=== PATIENT | female | born 1950 | race Two or more races ===

== ENCOUNTER 2016-05-24 22:06 | Inpatient (IN) | payer MEDICARE, MEDICAID ==
[~2016-05-24] VITALS: Ht 170.2 cm; Wt 50.8 kg
[2016-05-24] MEDS ORDERED: MAGNESIUM HYDROXIDE 30 ML UDC PO PRN (23:00)
[2016-05-24] MEDS ORDERED: MAG HYDROX/AL HYDROX/SIMETH 30 ML UDC PO PRN (23:00)
[2016-05-25 00:27] VITALS: BP 153/87
[2016-05-25 07:44] LABS: BASOPHILS % (AUTO) 0.3 % (0.0-2.0); DIFF TOTAL % 100 %; EOSINOPHILS # (AUTO) 0.1 /CMM (0.0-0.7); EOSINOPHILS % (AUTO) 0.8 % (0.0-6.0); HEMATOCRIT 38 % (33-45); HEMOGLOBIN 12.8 g/dL (11.5-14.8); LYMPHOCYTES # (AUTO) 2.1 /CMM (0.8-4.8); LYMPHOCYTES % (AUTO) 18.4 % (20.0-44.0); MEAN CORPUSCULAR HEMOGLOBIN 30 PG (26.0-33.0); MEAN CORPUSCULAR HGB CONC 34 g/dl (31.0-36.0); MEAN CORPUSCULAR VOLUME 88 fL (82-100); MONOCYTES % (AUTO) 8.8 % (2.0-12.0); NEUTROPHILS % (AUTO) 71.7 % (43.0-81.0); PLATELET COUNT (AUTO) 292 /CMM (150-450); RED BLOOD CELL COUNT(AUTO) 4.33 MIL/uL (4.0-5.2); WHITE BLOOD COUNT (AUTO) 11.2 K/uL (4.3-11.0)
[2016-05-25 08:00] VITALS: BP 139/96
[2016-05-25 08:01] LABS: BILIRUBIN,TOTAL 0.4 mg/dL (0.2-1.0); CALCIUM, SERUM 9.2 mg/dL (8.5-10.1); CREATININE 0.7 mg/dL (0.6-1.3); POTASSIUM 3.9 mmol/L (3.5-5.1); TOTAL PROTEIN, SERUM 7.6 g/dL (6.4-8.2)
[2016-05-25 16:00] VITALS: BP 126/70
[2016-05-25] MEDS: OLANZAPINE 5 MG/TAB.RAPDIS PO SCH (21:21)
[2016-05-25] MEDS: TEMAZEPAM 7.5 MG CAPSULE PO PRN (21:21)
[2016-05-25 23:50] VITALS: BP 150/91
[2016-05-26 08:57] VITALS: BP 119/76
[2016-05-26] MEDS ORDERED: OLANZAPINE 10 MG VIAL IM STA (11:15)
[2016-05-26 16:02] VITALS: BP 109/65
[2016-05-26 20:00] VITALS: BP 126/65
[2016-05-26] MEDS: OLANZAPINE 5 MG/TAB.RAPDIS PO SCH (21:30)
[2016-05-26] MEDS: TEMAZEPAM 7.5 MG CAPSULE PO PRN (21:31)
[2016-05-27 08:19] VITALS: BP 137/99
[2016-05-27] MEDS: LORAZEPAM 0.5 MG TABLET PO PRN ×2 (09:08→18:56)
[2016-05-27] MEDS: ACETAMINOPHEN 325 MG TABLET PO PRN (09:15)
[2016-05-27 16:00] VITALS: BP 135/85
[2016-05-27] MEDS: TEMAZEPAM 7.5 MG CAPSULE PO PRN (21:18)
[2016-05-27] MEDS: OLANZAPINE 5 MG/TAB.RAPDIS PO SCH (21:20)
[2016-05-28 07:10] LABS: BASOPHILS % (AUTO) 0.3 % (0.0-2.0); DIFF TOTAL % 100 %; EOSINOPHILS # (AUTO) 0.3 /CMM (0.0-0.7); EOSINOPHILS % (AUTO) 4.8 % (0.0-6.0); HEMATOCRIT 33 % (33-45); HEMOGLOBIN 11.3 g/dL (11.5-14.8); LYMPHOCYTES % (AUTO) 18.6 % (20.0-44.0); MEAN CORPUSCULAR HEMOGLOBIN 30 PG (26.0-33.0); MEAN CORPUSCULAR HGB CONC 34 g/dl (31.0-36.0); MEAN CORPUSCULAR VOLUME 88 fL (82-100); MONOCYTES # (AUTO) 0.7 /CMM (0.1-1.30); MONOCYTES % (AUTO) 11.9 % (2.0-12.0); NEUTROPHILS # (AUTO) 3.6 /CMM (1.8-8.9); NEUTROPHILS % (AUTO) 64.4 % (43.0-81.0); PLATELET COUNT (AUTO) 242 /CMM (150-450); WHITE BLOOD COUNT (AUTO) 5.5 K/uL (4.3-11.0)
[2016-05-28 07:28] LABS: CALCIUM, SERUM 8.6 mg/dL (8.5-10.1); CREATININE 0.6 mg/dL (0.6-1.3); POTASSIUM 3.9 mmol/L (3.5-5.1)
[2016-05-28] MEDS: LORAZEPAM 0.5 MG TABLET PO PRN ×3 (07:47→20:59)
[2016-05-28 08:00] VITALS: BP 136/88
[2016-05-28] MEDS: ACETAMINOPHEN 325 MG TABLET PO PRN ×2 (09:13→18:05)
[2016-05-28 16:00] VITALS: BP 131/64
[2016-05-28 19:53] VITALS: BP 140/83
[2016-05-28] MEDS: NAPROXEN 250 MG TABLET PO PRN (20:59)
[2016-05-28] MEDS: OLANZAPINE 5 MG/TAB.RAPDIS PO SCH (20:59)
[2016-05-29 08:04] VITALS: BP 132/91
[2016-05-29] MEDS: NAPROXEN 250 MG TABLET PO PRN (09:43)
[2016-05-29 16:22] VITALS: BP 152/72
[2016-05-29 20:53] VITALS: BP 106/72
[2016-05-29] MEDS: OLANZAPINE 5 MG/TAB.RAPDIS PO SCH (21:14)
[2016-05-30] MEDS: ACETAMINOPHEN 325 MG TABLET PO PRN (03:22)
[2016-05-30] MEDS: LORAZEPAM 0.5 MG TABLET PO PRN ×3 (03:26→17:48)
[2016-05-30] MEDS ORDERED: IV Sodium Chloride 3% 500 ML 500 ML IV PRN (08:30)
[2016-05-30 08:33] VITALS: BP 134/89
[2016-05-30] MEDS: NAPROXEN 250 MG TABLET PO PRN (10:15)
[2016-05-30 16:33] VITALS: BP 150/90
[2016-05-30 20:04] VITALS: BP 126/75
[2016-05-30] MEDS: OLANZAPINE 5 MG/TAB.RAPDIS PO SCH (21:26)
[2016-05-30] MEDS: TEMAZEPAM 7.5 MG CAPSULE PO PRN (22:30)
[2016-05-31 08:00] VITALS: BP 148/98
[2016-05-31] MEDS: LORAZEPAM 0.5 MG TABLET PO PRN (08:03)
[2016-05-31] MEDS: NAPROXEN 250 MG TABLET PO PRN (08:57)
[2016-05-31 16:00] VITALS: BP 124/85
[2016-05-31 20:00] VITALS: BP 105/61
[2016-05-31] MEDS: OLANZAPINE 5 MG/TAB.RAPDIS PO SCH (21:49)
[2016-06-01 08:00] VITALS: BP 135/93
[2016-06-01] MEDS: NAPROXEN 250 MG TABLET PO PRN (11:00)
== END 2016-06-01 14:00 | DRG 885 ==
LOC: GPS 22:06
PROVIDERS: ADMIT Psychiatry & Neurology Psychiatry; ATTEND Internal Medicine
DX: F20.0 Paranoid schizophrenia (principal); N17.0 Acute kidney failure with tubular necrosis; Z91.19 Patient's noncompliance with other medical treatment and regimen; D72.829 Elevated white blood cell count, unspecified; E86.0 Dehydration; F29 Unspecified psychosis not due to a substance or known physiological condition; F32.9 Major depressive disorder, single episode, unspecified
CPT/HCPCS: 36415; 80048-TC; 80053-TC; 80061-TC; 85025-TC; 87081-TC; J3490; Z7610